=== PATIENT | female | born 1970 | race African-American/Black ===

== ENCOUNTER 2022-03-20 12:53 | Inpatient (IN) | payer OTHER ==
[2022-03-20] MEDS ORDERED: MAGNESIUM HYDROX 2400MG/30ML ORAL SUSPENSION 30 ML CUP PO PRN (13:23)
[2022-03-20] MEDS ORDERED: NICOTINE 10 MG CARTRIDGE (INHALER) IH PRN (13:23)
[2022-03-20] MEDS ORDERED: MAG HYDROX/AL HYDROX/SIMETH 30 ML UNIT-DOSE CUP PO PRN (13:23)
[2022-03-20] MEDS ORDERED: LOPERAMIDE HCL 2 MG CAPSULE PO PRN (13:23)
[2022-03-20] MEDS ORDERED: MAGNESIUM CITRATE 300 ML BOTTLE PO PRN (13:23)
[2022-03-20] MEDS ORDERED: IBUPROFEN 400 MG TABLET (FP) PO PRN (13:23)
[2022-03-20] MEDS ORDERED: guaiFENesin 200 MG/10 ML 10 ML UNIT-DOSE CUPS PO PRN (13:23)
[2022-03-20] MEDS ORDERED: P-EPHED 60MG/TRIPROLIDI 2.5MG TABLET PO PRN (13:23)
[2022-03-20 13:42] VITALS: BMI 30.2
[2022-03-20] MEDS ORDERED: ACETAMINOPHEN 325 MG TABLET (FP) ONE (19:23)
[2022-03-20] MEDS: ACETAMINOPHEN 325 MG TABLET (FP) PO PRN (19:25)
[2022-03-20] MEDS: THIAMINE HCL 100 MG TABLET (FP) PO SCH (22:17)
[2022-03-20] MEDS: MELATONIN 5 MG TABLETS PO SCH (22:17)
[2022-03-20] MEDS: hydrOXYzine PAMOATE 25 MG CAPSULE (FP) PO SCH ×3 (22:18→22:40)
[2022-03-20] MEDS: NICOTINE 7 MG/24 HOURS TOPICAL PATCH TD SCH (22:19)
[2022-03-20] MEDS: PRENATAL VITAMINS W/ FOLIC ACID TABLET (FP) PO SCH (22:38)
[2022-03-21] MEDS: PRENATAL VITAMINS W/ FOLIC ACID TABLET (FP) PO SCH (10:27)
[2022-03-21] MEDS: NICOTINE 7 MG/24 HOURS TOPICAL PATCH TD SCH (10:27)
[2022-03-21] MEDS: LISINOPRIL 20 MG TABLET PO SCH (10:27)
[2022-03-21 12:31] LABS: ALBUMIN 3.4 g/dl (3.4-5.0); BLOOD UREA NITROGEN 12.9 mg/dL (7-18); CALCIUM 9.1 mg/dL (8.5-10.1)
[2022-03-21 12:34] LABS: CREATININE 0.8 mg/dL (0.55-1.3)
[2022-03-21 12:36] LABS: BILIRUBIN,TOTAL 0.5 mg/dL (0.2-1); TOT PROT 6.9 g/dl (6.4-8.2)
[2022-03-21 13:16] LABS: SYPHILIS W/ RPR CONF NON-REACTIVE (NONREACTIVE)
[2022-03-21] MEDS: MELATONIN 5 MG TABLETS PO SCH (22:01)
[2022-03-21] MEDS: risperiDONE 1 MG TABLET PO SCH (22:01)
[2022-03-21] MEDS: THIAMINE HCL 100 MG TABLET (FP) PO SCH (22:01)
[2022-03-22] MEDS ORDERED: FLUoxetine HCL 20 MG CAPSULE PO SCH (10:00)
[2022-03-22] MEDS: NICOTINE 7 MG/24 HOURS TOPICAL PATCH TD SCH (10:29)
[2022-03-22] MEDS: LISINOPRIL 20 MG TABLET PO SCH (10:29)
[2022-03-22] MEDS: FLUoxetine HCL 10 MG CAPSULE PO SCH (10:30)
[2022-03-22] MEDS: risperiDONE 1 MG TABLET PO SCH ×2 (10:30→22:16)
[2022-03-22] MEDS: PRENATAL VITAMINS W/ FOLIC ACID TABLET (FP) PO SCH (10:30)
[2022-03-22] MEDS: THIAMINE HCL 100 MG TABLET (FP) PO SCH (22:16)
[2022-03-22] MEDS: MELATONIN 5 MG TABLETS PO SCH (22:17)
[2022-03-23] MEDS: risperiDONE 1 MG TABLET PO SCH ×2 (10:54→21:18)
[2022-03-23] MEDS: LISINOPRIL 20 MG TABLET PO SCH (10:54)
[2022-03-23] MEDS: NICOTINE 7 MG/24 HOURS TOPICAL PATCH TD SCH (10:54)
[2022-03-23] MEDS: PRENATAL VITAMINS W/ FOLIC ACID TABLET (FP) PO SCH (10:54)
[2022-03-23] MEDS: FLUoxetine HCL 10 MG CAPSULE PO SCH (11:56)
[2022-03-23 12:35] LABS: HEMATOCRIT 37.1 % (32.4-45.2); MCH 29.5 pg (25.7-33.7); MCHC 32.3 g/dl (32.0-36.0); MEAN CELL VOLUME 91.4 fl (80-96); MEAN PLT VOLUME 9.4 fl (7.5-11.1); PLATELET COUNT 208 10^3/uL (134-434); RBC 4.06 M/mm3 (3.60-5.2); RDW 13.6 % (11.6-15.6); WHITE BLOOD COUNT 4.6 K/mm3 (4.0-10.0)
[2022-03-23] MEDS: MELATONIN 5 MG TABLETS PO SCH (21:18)
[2022-03-23] MEDS: THIAMINE HCL 100 MG TABLET (FP) PO SCH (21:18)
[2022-03-24] MEDS: PRENATAL VITAMINS W/ FOLIC ACID TABLET (FP) PO SCH (10:41)
[2022-03-24] MEDS: LISINOPRIL 20 MG TABLET PO SCH (10:41)
[2022-03-24] MEDS: NICOTINE 7 MG/24 HOURS TOPICAL PATCH TD SCH (10:41)
[2022-03-24] MEDS: risperiDONE 1 MG TABLET PO SCH ×2 (10:42→21:18)
[2022-03-24] MEDS: FLUoxetine HCL 10 MG CAPSULE PO SCH (12:36)
[2022-03-24 15:15] LABS: SARS-CoV-2 NAA Not Detected
[2022-03-24] MEDS: MELATONIN 5 MG TABLETS PO SCH (21:18)
[2022-03-24] MEDS: THIAMINE HCL 100 MG TABLET (FP) PO SCH (21:18)
[2022-03-25] MEDS: PRENATAL VITAMINS W/ FOLIC ACID TABLET (FP) PO SCH (10:37)
[2022-03-25] MEDS: FLUoxetine HCL 10 MG CAPSULE PO SCH (10:38)
[2022-03-25] MEDS: LISINOPRIL 20 MG TABLET PO SCH (10:39)
[2022-03-25] MEDS: risperiDONE 1 MG TABLET PO SCH ×2 (10:39→21:08)
[2022-03-25] MEDS: NICOTINE 7 MG/24 HOURS TOPICAL PATCH TD SCH (10:39)
[2022-03-25 19:37] LABS: PH,URINE 5.5 (5.0-8.0); URINE APPEARANCE CLEAR; URINE BILIRUBIN NEGATIVE (NEGATIVE); URINE COLOR YELLOW; URINE GLUCOSE (UA) NEGATIVE (NEGATIVE); URINE KETONE TRACE (NEGATIVE); URINE LEUK ESTERASE NEGATIVE (NEGATIVE); URINE NITRITE NEGATIVE (NEGATIVE); URINE PROTEIN NEGATIVE (NEGATIVE); URINE UROBILINOGEN 0.2 mg/dL (0.2-1.0)
[2022-03-25] MEDS: MELATONIN 5 MG TABLETS PO SCH (21:08)
[2022-03-25] MEDS: THIAMINE HCL 100 MG TABLET (FP) PO SCH (21:08)
[2022-03-26] MEDS: FLUoxetine HCL 10 MG CAPSULE PO SCH (10:59)
[2022-03-26] MEDS: risperiDONE 1 MG TABLET PO SCH ×2 (10:59→21:11)
[2022-03-26] MEDS: LISINOPRIL 20 MG TABLET PO SCH (10:59)
[2022-03-26] MEDS: PRENATAL VITAMINS W/ FOLIC ACID TABLET (FP) PO SCH (10:59)
[2022-03-26] MEDS: NICOTINE 7 MG/24 HOURS TOPICAL PATCH TD SCH (10:59)
[2022-03-26] MEDS: MELATONIN 5 MG TABLETS PO SCH (21:11)
[2022-03-26] MEDS: THIAMINE HCL 100 MG TABLET (FP) PO SCH (21:11)
[2022-03-27] MEDS: FLUoxetine HCL 10 MG CAPSULE PO SCH (10:35)
[2022-03-27] MEDS: NICOTINE 7 MG/24 HOURS TOPICAL PATCH TD SCH (10:35)
[2022-03-27] MEDS: LISINOPRIL 20 MG TABLET PO SCH (10:35)
[2022-03-27] MEDS: PRENATAL VITAMINS W/ FOLIC ACID TABLET (FP) PO SCH (10:35)
[2022-03-27] MEDS: risperiDONE 1 MG TABLET PO SCH ×2 (10:35→22:05)
[2022-03-27 14:14] LABS: SARS-CoV-2 NAA Not Detected (Not Detected)
[2022-03-27] MEDS: SUVOREXANT 10 MG TABLET PO PRN (22:05)
[2022-03-27] MEDS: THIAMINE HCL 100 MG TABLET (FP) PO SCH (22:05)
[2022-03-27] MEDS: ACETAMINOPHEN 325 MG TABLET (FP) PO PRN (23:04)
[2022-03-27] MEDS ORDERED: PANTOPRAZOLE 20 MG TABLET PO ONE (23:52)
[2022-03-28] MEDS: LISINOPRIL 20 MG TABLET PO SCH (11:00)
[2022-03-28] MEDS: risperiDONE 1 MG TABLET PO SCH ×2 (11:00→21:05)
[2022-03-28] MEDS: FLUoxetine HCL 20 MG CAPSULE PO SCH (11:00)
[2022-03-28] MEDS: NICOTINE 7 MG/24 HOURS TOPICAL PATCH TD SCH (11:01)
[2022-03-28] MEDS: PRENATAL VITAMINS W/ FOLIC ACID TABLET (FP) PO SCH (11:02)
[2022-03-28] MEDS: SUVOREXANT 10 MG TABLET PO PRN (21:04)
[2022-03-28] MEDS: THIAMINE HCL 100 MG TABLET (FP) PO SCH (21:05)
[2022-03-29] MEDS: NICOTINE 7 MG/24 HOURS TOPICAL PATCH TD SCH (11:01)
[2022-03-29] MEDS: FLUoxetine HCL 20 MG CAPSULE PO SCH (11:01)
[2022-03-29] MEDS: LISINOPRIL 20 MG TABLET PO SCH (11:01)
[2022-03-29] MEDS: risperiDONE 1 MG TABLET PO SCH ×2 (11:01→21:08)
[2022-03-29] MEDS: PRENATAL VITAMINS W/ FOLIC ACID TABLET (FP) PO SCH (11:01)
[2022-03-29] MEDS: THIAMINE HCL 100 MG TABLET (FP) PO SCH (21:08)
[2022-03-29] MEDS: SUVOREXANT 10 MG TABLET PO PRN (21:08)
[2022-03-30] MEDS: NICOTINE 7 MG/24 HOURS TOPICAL PATCH TD SCH (11:07)
[2022-03-30] MEDS: PRENATAL VITAMINS W/ FOLIC ACID TABLET (FP) PO SCH (11:07)
[2022-03-30] MEDS: risperiDONE 1 MG TABLET PO SCH ×2 (11:07→21:24)
[2022-03-30] MEDS: LISINOPRIL 20 MG TABLET PO SCH (11:08)
[2022-03-30] MEDS: FLUoxetine HCL 20 MG CAPSULE PO SCH (11:08)
[2022-03-30] MEDS: THIAMINE HCL 100 MG TABLET (FP) PO SCH (21:24)
[2022-03-30] MEDS: SUVOREXANT 10 MG TABLET PO PRN (21:24)
[2022-03-30] MEDS: ACETAMINOPHEN 325 MG TABLET (FP) PO PRN (21:58)
[2022-03-31] MEDS: NICOTINE 7 MG/24 HOURS TOPICAL PATCH TD SCH (10:48)
[2022-03-31] MEDS: LISINOPRIL 20 MG TABLET PO SCH (10:48)
[2022-03-31] MEDS: PRENATAL VITAMINS W/ FOLIC ACID TABLET (FP) PO SCH (10:48)
[2022-03-31] MEDS: risperiDONE 1 MG TABLET PO SCH ×2 (10:48→21:20)
[2022-03-31] MEDS: FLUoxetine HCL 20 MG CAPSULE PO SCH (10:48)
[2022-03-31] MEDS: SUVOREXANT 10 MG TABLET PO PRN (21:20)
[2022-03-31] MEDS: THIAMINE HCL 100 MG TABLET (FP) PO SCH (21:20)
[2022-03-31] MEDS: ACETAMINOPHEN 325 MG TABLET (FP) PO PRN (21:22)
[2022-04-01 07:15] VITALS: TEMP 97.7
[2022-04-01] MEDS: FLUoxetine HCL 20 MG CAPSULE PO SCH (10:37)
[2022-04-01] MEDS: NICOTINE 7 MG/24 HOURS TOPICAL PATCH TD SCH (10:37)
[2022-04-01] MEDS: LISINOPRIL 20 MG TABLET PO SCH (10:37)
[2022-04-01] MEDS: PRENATAL VITAMINS W/ FOLIC ACID TABLET (FP) PO SCH (10:37)
[2022-04-01] MEDS: SUVOREXANT 10 MG TABLET PO PRN (21:19)
[2022-04-01] MEDS: THIAMINE HCL 100 MG TABLET (FP) PO SCH (21:19)
[2022-04-01] MEDS: risperiDONE 1 MG TABLET PO SCH (21:19)
[2022-04-01] MEDS: ACETAMINOPHEN 325 MG TABLET (FP) PO PRN (21:21)
[2022-04-02] MEDS: PRENATAL VITAMINS W/ FOLIC ACID TABLET (FP) PO SCH (10:28)
[2022-04-02] MEDS: NICOTINE 7 MG/24 HOURS TOPICAL PATCH TD SCH (10:28)
[2022-04-02] MEDS: LISINOPRIL 20 MG TABLET PO SCH (10:29)
[2022-04-02] MEDS: FLUoxetine HCL 20 MG CAPSULE PO SCH (10:29)
[2022-04-02] MEDS: SUVOREXANT 10 MG TABLET PO PRN (21:10)
[2022-04-02] MEDS: THIAMINE HCL 100 MG TABLET (FP) PO SCH (21:10)
[2022-04-02] MEDS: risperiDONE 1 MG TABLET PO SCH (21:10)
[2022-04-02] MEDS: ACETAMINOPHEN 325 MG TABLET (FP) PO PRN (21:11)
[2022-04-03] MEDS: NICOTINE 7 MG/24 HOURS TOPICAL PATCH TD SCH (09:40)
[2022-04-03] MEDS: FLUoxetine HCL 20 MG CAPSULE PO SCH (09:41)
[2022-04-03] MEDS: PRENATAL VITAMINS W/ FOLIC ACID TABLET (FP) PO SCH (09:41)
[2022-04-03] MEDS: LISINOPRIL 20 MG TABLET PO SCH (09:41)
[2022-04-03 09:54] VITALS: BP 124/75; PULSE 80
== END 2022-04-03 13:10 | disposition home or self-care (01) | DRG 772 ==
LOC: YASAS 12:53 → Y5N 18:33
PROVIDERS: ADMIT Allergy & Immunology; ATTEND Allergy & Immunology
PROC: HZ42ZZZ Group Counseling for Substance Abuse Treatment, Cognitive-Behavioral (ICD-10-PCS; principal; 2022-03-20)
DX: F10.20 Alcohol dependence, uncomplicated (principal); F14.20 Cocaine dependence, uncomplicated; F17.210 Nicotine dependence, cigarettes, uncomplicated; F31.9 Bipolar disorder, unspecified; G47.00 Insomnia, unspecified; I10 Essential (primary) hypertension; J45.20 Mild intermittent asthma, uncomplicated; K21.9 Gastro-esophageal reflux disease without esophagitis; R73.03 Prediabetes; R01.1 Cardiac murmur, unspecified; Z87.42 Personal history of other diseases of the female genital tract
CPT/HCPCS: 36415; 80053; 81003; 81025; 82962; 85027; 86780; 86803; 93005; 93010; C9803-CS; J2794; U0003; U0005